=== PATIENT | female | born 1950 ===

== ENCOUNTER 2016-10-04 12:30 | Observation (INO) | payer OTHER, SELFPAY ==
[2016-10-04 12:33] VITALS: BMI 34.3
[2016-10-04 13:47] LABS: BASO # 0.1 K/uL (0.0-0.2); BASO % 1.8 % (0.0-2.0); EOS # 0.2 K/uL (0.0-0.7); EOS % 3.3 % (0.0-4.0); HEMATOCRIT 24.7 % (34.0-47.0); LYMPH # 1.5 K/uL (1.0-4.3); LYMPH % 23.6 % (20.0-40.0); MEAN CELL VOLUME 66.8 fl (81.0-99.0); MEAN CORPUSCULAR HEMOGLOBIN 20.4 pg (27.0-31.0); MEAN CORPUSCULAR HGB CONC 30.6 g/dL (33.0-37.0); MEAN PLATELET VOLUME 7.2 fl (7.2-11.7); MONO # 0.5 K/uL (0.0-0.8); MONO % 7.5 % (0.0-10.0); NEUT # 4.2 K/uL (1.8-7.0); NEUT % 63.8 % (50.0-75.0); RED CELL DISTRIBUTION WIDTH 23.2 % (11.5-14.5); WHITE BLOOD COUNT 6.5 K/uL (4.8-10.8)
[2016-10-04 13:55] LABS: ALKALINE PHOSPHATASE 145 U/L (38-126); ALT/SGPT 18 U/L (9-52); AST/SGOT 29 U/L (14-36); BILIRUBIN,TOTAL 0.3 mg/dl (0.2-1.3); BLOOD UREA NITROGEN 16 mg/dl (7-17); CALCIUM 9.3 mg/dL (8.4-10.2); CARBON DIOXIDE 24 mmol/L (22-30); CHLORIDE 103 mmol/L (98-107); GFR AFRICAN-AMERICAN > 60; GLUCOSE,RANDOM 108 mg/dL (65-105); POTASSIUM 3.7 MMOL/L (3.6-5.0); SODIUM 142 mmol/l (132-148)
[2016-10-04 14:16] LABS: PARTIAL THROMBOPLASTIN TIME 24.3 SECONDS (23.3-32.5)
--- NOTE | 2016-10-04 14:36 | ED PDOC ---
HPI: General Adult Time Seen by Provider: 10/04/16 13:02 Chief Complaint (Nursing): Abnormal Labs Chief Complaint (Provider): Abnormal Labs History Per: Patient History/Exam Limitations: no limitations Onset/Duration Of Symptoms: Days (x1 day) Current Symptoms Are (Timing): Still Present Additional Complaint(s): 66 y/o female with a past medical history of anemia and hypertension who presents to the emergency department after she was called by her PMD and was advised that she needed to visit the ER and get blood transfused because of abnormal lab results (Blood work that was done on 10/03/2016) prior to arrival. Patient states she has a complaint of palpitations and fatigue especially while attempting to walk. Denies dark stools or rectal bleeding. Of note, patient seen Dr. Bradley for work up for anemia and due to have an endoscopy and colonoscopy soon. Guaiac was negative last year. Patient has additional medical record chart in which labs were drawn, [id number]. Past Medical History Reviewed: Historical Data, Nursing Documentation, Vital Signs Vital Signs: Last Vital Signs Temp 98.3 F 10/05/16 08:15 Pulse 82 10/05/16 08:15 Resp 20 10/05/16 08:15 BP 145/83 10/05/16 08:15 Pulse Ox 100 10/05/16 16:48 - Medical History PMH: HTN, Hypothyroidism - Surgical History Surgical History: Cholecystectomy Other surgeries: Uterus removed - Family History Family History: States: Unknown Family Hx - Social History Current smoker - smoking cessation education provided: No Alcohol: None Drugs: Denies - Immunization History Hx Tetanus Toxoid Vaccination: No Hx Influenza Vaccination: No Hx Pneumococcal Vaccination: No - Home Medications Home Medications: Ambulatory Orders Medication Instructions Recorded Ferrous Sulfate [Feosol] 325 mg PO BID 10/04/16 Fluticasone Nasal [Flonase] 2 spray MUKUND DAILY PRN 10/04/16 Levothyroxine [Synthroid] 75 mcg PO DAILY 10/04/16 Losartan/Hydrochlorothiazide 1 tab PO DAILY 10/04/16 [Hyzaar 100-12.5 Tablet] Lovastatin 40 mg PO HS 10/04/16 Metoprolol Succinate 25 mg PO DAILY 10/04/16 metFORMIN [glucOPHAGE] 500 mg PO BID 10/04/16 - Allergies Allergies/Adverse Reactions: Allergies Allergy/AdvReac Type Severity Reaction Status Date / Time No Known Allergies Allergy Verified 10/15/15 10:02 Review of Systems ROS Statement: Except As Marked, All Systems Reviewed And Found Negative Constitutional: Positive for: Other (fatigue) Cardiovascular: Positive for: Palpitations Gastrointestinal: Negative for: Melena, Other (Rectal bleeding) Physical Exam - Reviewed Nursing Documentation Reviewed: Yes Vital Signs Reviewed: Yes - Physical Exam Appears: Positive for: Non-toxic, No Acute Distress Head Exam: Positive for: ATRAUMATIC, NORMOCEPHALIC Eye Exam: Positive for: Normal appearance. Negative for: Conjunctival injection ENT: Positive for: Normal ENT Inspection. Negative for: Pharyngeal Erythema Neck: Positive for: Normal, Supple Cardiovascular/Chest: Positive for: Regular Rate, Rhythm. Negative for: Murmur Respiratory: Positive for: Normal Breath Sounds. Negative for: Accessory Muscle Use, Respiratory Distress Neurologic/Psych: Positive for: Alert, Oriented - Laboratory Results Result Diagrams: 10/05/16 05:30 10/05/16 05:30 - ECG O2 Sat by Pulse Oximetry: 100 (RA) Pulse Ox Interpretation: Normal Medical Decision Making Medical Decision Making: Time: 13:02 Initial impression: Abnormal lab results Initial plan: --Type and Screen Stat ----needs blood transfused because her Hgb is a 7.5 count. Time: 14:12 --Admit (Admit to Hospital) --Patient will be hospitalized under observation within Med/Surg under the care of PCP: Dr. Elaine Acevedo Attestation: Documented by Tita Roper, acting as a scribe for Jayy Groves MD. Provider Scribe Attestation: All medical record entries made by the Scribe were at my direction and personally dictated by me. I have reviewed the chart and agree that the record accurately reflects my personal performance of the history, physical exam, medical decision making, and the department course for this patient. I have also personally directed, reviewed, and agree with the discharge instructions and disposition. Disposition - Clinical Impression Clinical Impression: Anemia - Patient ED Disposition Is Patient to be Admitted: Yes Counseled Patient/Family Regarding: Studies Performed, Diagnosis - Disposition Disposition Time: 14:45 Condition: STABLE - Pt Status Changed To: Hospital Disposition Of: Observation - POA Present On Arrival: None
[2016-10-04] MEDS ORDERED: Glucagon Recombinant 1 mg Inj IM PRN (16:30)
[2016-10-04] MEDS ORDERED: Dextrose 50% SYRINGE Inj (50 ml) IV PRN (16:30)
--- NOTE | 2016-10-04 16:36 | CP.PCM.HP ---
History of Present Illness - History of Present Illness History of Present Illness: 66 y/o female with a PMHx remarkable for anemia, hypertension, NIDDM2 presented to the emergency department after she was called by her PMD (Dr. Price) and was advised that she needed to visit the ER and get blood transfused due to abnormal lab results (CBC done on 10/03/2016). She also reports feeling palpitations when walking and [place], as well as blurred vision and lightheadedness. No symptoms at rest. Denies fever/chills, headaches, CP/SOB, N/ V/D/C, hematochezia, melena, hematemeis, coffee ground emesis, urinary symptoms. Additional MR #[id number] with most recent labs PMD: [facility] and Dr. Bradley PMHx: anemia of unknown etiology, HTN, NIDDM2 Meds: ascorbic acid, docusate, escitaprolam, ferrous sulfate, levothyroxine, losartan, HCTZ, metoformin, atorvastatin PsurgHx: hysterectomy, cholecystectomy ALL: NKDA Social: lives at home alone, visited by friends and family weekend, Denies ETOH/ Tobacco/Illicit drug use FHx: noncontributory ED Course: Vitals on presentation Temp: 98.0F BP: 148/77 HR: 90 RR: 18 O2sat: 100% on RA Labs: CBC: 6.5>7.5/24.7<374 CMP: WNL Type and screen Admitted to Med/Surg for Obs/transfusion Present on Admission - Present on Admission Any Indicators Present on Admission: No Review of Systems - Review of Systems All systems: reviewed and no additional remarkable complaints except Past Patient History - Past Medical History & Family History Past Medical History?: Yes - Past Social History Smoking Status: Never Smoked Alcohol: None Drugs: Denies Home Situation {Lives}: Alone - CARDIAC Hx Hypertension: Yes - ENDOCRINE/METABOLIC Hx Hypothyroidism: Yes - PSYCHIATRIC Hx Substance Use: No - SURGICAL HISTORY Hx Cholecystectomy: Yes Meds Allergies/Adverse Reactions: Allergies Allergy/AdvReac Type Severity Reaction Status Date / Time No Known Allergies Allergy Verified 10/15/15 10:02 Physical Exam - Constitutional Appears: Well, Non-toxic, No Acute Distress - Head Exam Head Exam: ATRAUMATIC, NORMOCEPHALIC - Eye Exam Eye Exam: EOMI, PERRL. absent: Conjunctival injection, Scleral icterus - ENT Exam ENT Exam: Mucous Membranes Moist - Neck Exam Neck exam: Positive for: Full Rom. Negative for: Tenderness - Respiratory Exam Respiratory Exam: Clear to Auscultation Bilateral, NORMAL BREATHING PATTERN. absent: Rales, Rhonchi, Wheezes, Respiratory Distress - Cardiovascular Exam Cardiovascular Exam: REGULAR RHYTHM, RRR, +S1, +S2. absent: Tachycardia, Gallop , JVD, Rubs - GI/Abdominal Exam GI & Abdominal Exam: Normal Bowel Sounds, Soft. absent: Distended, Firm, Guarding, Tenderness - Extremities Exam Extremities exam: Positive for: normal inspection. Negative for: calf tenderness, pedal edema, pedal pulses present - Neurological Exam Neurological exam: Alert, CN II-XII Intact, Normal Gait, Oriented x3 - Psychiatric Exam Psychiatric exam: Normal Affect, Normal Mood - Skin Skin Exam: Dry, Intact, Pallor, Warm Results - Vital Signs Recent Vital Signs: Last Vital Signs Temp 98 F 10/04/16 14:34 Pulse 75 10/04/16 14:34 Resp 20 10/04/16 14:34 BP 132/65 10/04/16 14:34 Pulse Ox 100 10/04/16 14:56 - Labs Result Diagrams: 10/04/16 13:20 10/04/16 13:20 Assessment & Plan - Assessment and Plan (Free Text) Assessment: 66 y/o female with a PMHx remarkable for Anemia of unknown etiology, HTN, NIDDM2 , admitted for microcytic anemia of unknown etiology requiring blood transfusion. Plan: 1) Microcytic Anemia of Unknown Etiology -admitted to obs on Med/Surg -2 units PRBCs -follow up H&H -Dr. Bradley notified -pt has endoscopy and colonoscopy scheduled for later this month 2) NIDDM2 (well controlled) c/w home meds Regular Insulin SC AC HS 3) Hypothyroidism (well controlled) c/w home meds 4) Hypertension (well controlled) c/w home meds 5) DVT Prophylaxis -Lovenox 40 SC
[2016-10-04] MEDS: Insulin Regular 100 units/ml SC SCH ×2 (17:23→23:19)
[2016-10-04 21:14] VITALS: RESP 20; TEMP 98.3
[2016-10-05] MEDS: Insulin Regular 100 units/ml SC SCH ×2 (07:23→11:16)
[2016-10-05 07:38] LABS: HEMATOCRIT 30.7 % (34.0-47.0); MEAN CELL VOLUME 71.4 fl (81.0-99.0); MEAN CORPUSCULAR HEMOGLOBIN 22.5 pg (27.0-31.0); MEAN CORPUSCULAR HGB CONC 31.5 g/dL (33.0-37.0); RED CELL DISTRIBUTION WIDTH 26.5 % (11.5-14.5); WHITE BLOOD COUNT 7.5 K/uL (4.8-10.8)
[2016-10-05 08:13] LABS: BLOOD UREA NITROGEN 19 mg/dl (7-17); CALCIUM 8.8 mg/dL (8.4-10.2); CARBON DIOXIDE 25 mmol/L (22-30); CHLORIDE 107 mmol/L (98-107); GFR AFRICAN-AMERICAN > 60; GLUCOSE,RANDOM 94 mg/dL (65-105); POTASSIUM 3.7 MMOL/L (3.6-5.0); SODIUM 144 mmol/l (132-148)
[2016-10-05 08:15] VITALS: BP 145/83; PULSE 82
[2016-10-05] MEDS ORDERED: Levothyroxine 75 MCG TAB PO SCH (09:00)
[2016-10-05] MEDS ORDERED: Metoprolol Succinate 25 mg XL Tab PO SCH (09:00)
[2016-10-05] MEDS ORDERED: HCTZ/Losartan 12.5/50 Tab PO SCH (09:00)
[2016-10-05] MEDS ORDERED: Enoxaparin 40 mg Syringe SC SCH (09:00)
--- NOTE | 2016-10-05 12:55 | CP.PCM.DIS ---
Provider - Provider Date of Admission: 10/04/16 14:12 Attending physician: Elaine Sánchez MD Time Spent in preparation of Discharge (in minutes): 35 Hospital Course - Lab Results Lab Results: Most Recent Lab Values WBC 7.5 K/uL (4.8-10.8) 10/05/16 05:30 RBC 4.30 Mil/uL (3.80-5.20) 10/05/16 05:30 Hgb 9.7 g/dL (12.0-16.0) L D 10/05/16 05:30 Hct 30.7 % (34.0-47.0) L 10/05/16 05:30 MCV 71.4 fl (81.0-99.0) L D 10/05/16 05:30 MCH 22.5 pg (27.0-31.0) L 10/05/16 05:30 MCHC 31.5 g/dL (33.0-37.0) L 10/05/16 05:30 RDW 26.5 % (11.5-14.5) H 10/05/16 05:30 Plt Count 352 K/uL (130-400) 10/05/16 05:30 MPV 7.2 fl (7.2-11.7) 10/04/16 13:20 Neut % (Auto) 63.8 % (50.0-75.0) 10/04/16 13:20 Lymph % (Auto) 23.6 % (20.0-40.0) 10/04/16 13:20 [place] % (Auto) 7.5 % (0.0-10.0) 10/04/16 13:20 Eos % (Auto) 3.3 % (0.0-4.0) 10/04/16 13:20 Baso % (Auto) 1.8 % (0.0-2.0) 10/04/16 13:20 Neut # 4.2 K/uL (1.8-7.0) 10/04/16 13:20 Lymph # 1.5 K/uL (1.0-4.3) 10/04/16 13:20 [place] # 0.5 K/uL (0.0-0.8) 10/04/16 13:20 Eos # 0.2 K/uL (0.0-0.7) 10/04/16 13:20 Baso # 0.1 K/uL (0.0-0.2) 10/04/16 13:20 PT 10.0 SECONDS (9.6-11.2) 10/04/16 13:20 INR 0.96 (0.92-1.08) 10/04/16 13:20 APTT 24.3 SECONDS (23.3-32.5) 10/04/16 13:20 Sodium 144 mmol/l (132-148) 10/05/16 05:30 Potassium 3.7 MMOL/L (3.6-5.0) 10/05/16 05:30 Chloride 107 mmol/L (98-107) 10/05/16 05:30 Carbon Dioxide 25 mmol/L (22-30) 10/05/16 05:30 Anion Gap 16 (10-20) 10/05/16 05:30 BUN 19 mg/dl (7-17) H 10/05/16 05:30 Creatinine 0.7 mg/dL (0.7-1.2) 10/05/16 05:30 Est GFR ( Amer) > 60 10/05/16 05:30 Est GFR (Non-Af Amer) > 60 10/05/16 05:30 POC Glucose (mg/dL) 119 mg/dL (65-110) H 10/05/16 11:15 Random Glucose 94 mg/dL (65-105) 10/05/16 05:30 Calcium 8.8 mg/dL (8.4-10.2) 10/05/16 05:30 Total Bilirubin 0.3 mg/dl (0.2-1.3) 10/04/16 13:20 AST 29 U/L (14-36) 10/04/16 13:20 ALT 18 U/L (9-52) 10/04/16 13:20 Alkaline Phosphatase 145 U/L (38-126) H 10/04/16 13:20 Total Protein 8.0 G/DL (6.3-8.2) 10/04/16 13:20 Albumin 4.0 g/dL (3.5-5.0) 10/04/16 13:20 Globulin 4.0 gm/dL (2.2-3.9) H 10/04/16 13:20 Albumin/Globulin Ratio 1.0 (1.0-2.1) 10/04/16 13:20 Blood Type O NEGATIVE 10/04/16 13:20 Antibody Screen Negative 10/04/16 13:20 Crossmatch See Detail 10/04/16 13:20 BBK History Checked Patient has bt 10/04/16 13:20 - Hospital Course Hospital Course: 66 y/o female with a PMHx remarkable for chronic microcyctic anemia, HTN, NIDDM2 presented to the ED due to abnormal lab results as well as palpitations and [place]. She was notified by her PMD that her hemoglobin was 6.5 and that she should go to the ER for transfusion. On presentation she had a hemoglobin of 7.5 and was hemodynamically stable. She was admitted for severe symptomatic anemia. She was transfused with 2 units PRBCs and tolerated it well. Follow up H &H was 9.7/30.7 respectively. After an uneventful night, she was discharged in stable condition with orders to follow up H&H this week and to go to her GI appointment on 10/14. Discharge Exam - Head Exam Head Exam: ATRAUMATIC, NORMOCEPHALIC - Eye Exam Eye Exam: EOMI Pupil Exam: PERRL - ENT Exam ENT Exam: Mucous Membranes Moist - Respiratory Exam Respiratory Exam: Clear to PA & Lateral, NORMAL BREATHING PATTERN, UNREMARKABLE - Cardiovascular Exam Cardiovascular Exam: REGULAR RHYTHM, RRR, +S1, +S2. absent: JVD - GI/Abdominal Exam GI & Abdominal Exam: Normal Bowel Sounds, Soft, Unremarkable. absent: Tenderness - Extremities Exam Extremities exam: full ROM, normal capillary refill, normal inspection, pedal pulses present - Neurological Exam Neurological exam: Alert, CN II-XII Intact, Normal Gait, Oriented x3 - Psychiatric Exam Psychiatric exam: Normal Affect, Normal Mood - Skin Skin Exam: Dry, Intact, Normal Color, Warm Discharge Plan - Follow Up Plan Condition: STABLE Disposition: HOME/ ROUTINE Instructions: Iron Rich Diet (DC), Anemia (DC) Additional Instructions: follow up H&H this week follow up with PMD later this week report for endoscopy/colonoscopy on 10/14 any worsening of symptoms, such as chest pain, dizziness, headaches, report back to ER.
[2016-10-05 16:48] VITALS: O2SAT 100
[2016-10-06] MEDS ORDERED: Patient's Own Med (Losartan/Hydrochlorothiazide [Hyzaar 100-12.5 Tablet] 1 TAB) PO SCH (09:00)
== END 2016-10-05 13:35 | disposition home or self-care (01) ==
LOC: H.ER 12:30 → MERGE 14:12 → H.ERHOLD 14:12 → H.MEDSURG1 15:44
PROVIDERS: ADMIT Family Medicine Geriatric Medicine; ATTEND Family Medicine Geriatric Medicine
DX: D64.9 Anemia, unspecified (principal); I10 Essential (primary) hypertension; E03.9 Hypothyroidism, unspecified; E11.9 Type 2 diabetes mellitus without complications; Z90.49 Acquired absence of other specified parts of digestive tract

== ENCOUNTER 2017-01-21 10:25 | Day surgery (SDC) | payer SELFPAY ==
[2016-10-07 07:07] VITALS: BMI 34.3
[2017-01-21] MEDS ORDERED: Lactated Ringer's 500 ML IV ONE (12:36)
[2017-01-21 12:39] VITALS: O2SAT 100
[2017-01-21] MEDS ORDERED: Propofol 10 mg/ml Inj (20 ML) ONE (12:50)
[2017-01-21 13:51] VITALS: BP 130/62; PULSE 83; RESP 18; TEMP 96.8
== END 2017-01-21 15:33 | disposition home or self-care (01) ==
LOC: H.ENDO 10:25
PROVIDERS: ATTEND Internal Medicine Gastroenterology
DX: K29.70 Gastritis, unspecified, without bleeding (principal); K29.80 Duodenitis without bleeding; K57.30 Diverticulosis of large intestine without perforation or abscess without bleeding; K64.8 Other hemorrhoids; D64.9 Anemia, unspecified

== ENCOUNTER 2017-12-19 14:23 | Emergency (ER) | payer SELFPAY ==
[2017-12-19 14:23] VITALS: BMI 34.3
[2017-12-19 14:43] VITALS: TEMP 97
[2017-12-19 15:06] VITALS: O2SAT 98
--- NOTE | 2017-12-19 15:06 | ED PDOC ---
HPI: Hypertension/Hypotension Chief Complaint (Nursing): High Blood Pressure Chief Complaint (Provider): High blood pressure History Per: Patient History/Exam Limitations: no limitations Onset/Duration Of Symptoms: Hrs Current Symptoms Are (Timing): Gone Now Additional Complaint(s): 67 y/o F with h/o HTN presents to ED complaining of elevated BP at home. Patient states that this morning she checked her BP at home and was 150s/111, and decided to come to ED for evaluation. Patient was seen by PMD, Dr. Polk at [facility] on Friday and her BP medications were adjusted. Denies chest pain, SOB, epigastric/abd pain, N/V, headaches, acute changes in vision, or other associated complains. Patient had lab work and Cervical sp MRI done today ordered by her PMD. Past Medical History Vital Signs: Last Vital Signs Temp 97 F L 12/19/17 14:38 Pulse Resp BP Pulse Ox - Medical History PMH: Anemia, HTN, Hypercholesterolemia, Hypothyroidism, Sleep Apnea Denies: Chronic Kidney Disease - Surgical History Surgical History: Cholecystectomy - Family History Family History: States: Unknown Family Hx - Social History Current smoker - smoking cessation education provided: No Ex-Smoker (has not smoked in the last 12 months): No Alcohol: None Drugs: Denies - Immunization History Hx Tetanus Toxoid Vaccination: No Hx Influenza Vaccination: No Hx Pneumococcal Vaccination: No - Home Medications Home Medications: Ambulatory Orders Medication Instructions Recorded Escitalopram [Lexapro] 10 mg PO DAILY #30 tab 09/01/16 metFORMIN [glucOPHAGE] 500 mg PO DAILY #30 tab 09/01/16 Ferrous Sulfate [Feosol] 325 mg PO BID 10/04/16 Fluticasone Nasal [Flonase] 2 spray MUKUND DAILY PRN 10/04/16 Levothyroxine [Synthroid] 75 mcg PO DAILY 10/04/16 Losartan/Hydrochlorothiazide 1 tab PO DAILY 10/04/16 [Hyzaar 100-12.5 Tablet] Lovastatin 40 mg PO HS 10/04/16 Metoprolol Succinate 25 mg PO DAILY 10/04/16 - Allergies Allergies/Adverse Reactions: Allergies Allergy/AdvReac Type Severity Reaction Status Date / Time No Known Allergies Allergy Verified 01/21/17 12:34 Review of Systems ROS Statement: Except As Marked, All Systems Reviewed And Found Negative Review Of Systems: ROS cannot be obtained secondary to pt's inabilty to answer questions. (as per HPI) Physical Exam - Reviewed Nursing Documentation Reviewed: Yes Vital Signs Reviewed: Yes - Physical Exam Appears: Positive for: Non-toxic, No Acute Distress Head Exam: Positive for: ATRAUMATIC, NORMOCEPHALIC Skin: Positive for: Normal Color, Warm. Negative for: Diaphoresis, Pallor, Rash , Jaundice, Mottled, Cyanosis Eye Exam: Positive for: Normal appearance ENT: Positive for: Normal ENT Inspection Neck: Positive for: Normal, Supple Cardiovascular/Chest: Positive for: Regular Rate, Rhythm. Negative for: Chest Non Tender, Gallop, Murmur, Bradycardia, Tachycardia Respiratory: Positive for: Normal Breath Sounds. Negative for: Decreased Breath Sounds, Accessory Muscle Use, Crackles, Rales, Rhonchi, Wheezing, Respiratory Distress Gastrointestinal/Abdominal: Positive for: Bowel Sounds (present and normal), Soft. Negative for: Tenderness, Distended, Guarding, Rebound Back: Positive for: Normal Inspection. Negative for: L CVA Tenderness, R CVA Tenderness Neurologic/Psych: Positive for: Alert, surg physician asst II-XII (grossly normal), Oriented, Gait (normal). Negative for: Motor/Sensory Deficits, Aphasia, Facial Droop Medical Decision Making Medical Decision Making: Hypertension -145/80 in ER -asymptomatic in ER -case discussed with Dr. Benites Patient stable to be discharged home with recommended f/u with PMD. Recommended to take BP meds in AM. F/u with PMD in 2-3 weeks. Bring Home BP machine to PMD' s office to check functioning. Patient is asymptomatic in ER, re-checked BP with manual BP cuff still in high 140s/high 80s. Asymptomatic. Case discussed with Dr. Benites. Disposition - Clinical Impression Clinical Impression: HTN (hypertension) - Patient ED Disposition Is Patient to be Admitted: No Discussed With DrCali: Yadira Benites - Disposition Referrals: [facility] [Outside] Disposition: Routine/Home Disposition Time: 15:43 Condition: GOOD Additional Instructions: Mikaela a hooper medico primario en 2-3 robles. Regresar a emergencias si presion arterial esta elevada, y/o asociada a dolor en el pecho, falta de aire o otro sintoma que le preocupe. Instructions: High Blood Pressure in Adults Forms: [facility] (Polish) Print Language: JAPANESE
[2017-12-19 16:00] VITALS: BP 142/81; PULSE 81; RESP 21
== END 2017-12-19 16:00 | disposition home or self-care (01) ==
LOC: H.ER 14:23
DX: I10 Essential (primary) hypertension (principal); E03.9 Hypothyroidism, unspecified; E78.00 Pure hypercholesterolemia, unspecified; Z79.84 Long term (current) use of oral hypoglycemic drugs

== ENCOUNTER 2018-04-07 11:37 | Observation (INO) | payer MEDICAID, SELFPAY ==
[2018-04-07 11:38] VITALS: BMI 34.3
--- NOTE | 2018-04-07 13:06 | ED PDOC ---
HPI: General Adult Time Seen by Provider: 04/07/18 11:40 Chief Complaint (Nursing): Abnormal Labs Chief Complaint (Provider): Abnormal Labs History Per: Patient, Service Counselor ([id number] voyce- croatian) History/Exam Limitations: no limitations Additional Complaint(s): 67 years old female with history of hypertension presents to ER for abnormal labs that were done by Dr. Polk from [facility] 1days ago. Dr. Polk inf ormed patient of having low hemoglobin. Patient complains at this time of weakness, dizziness and palpitations and it has been going on for 7 days. She denies fever, vomiting and diarrhea. PMD: Dr. Polk, [facility] Past Medical History Reviewed: Historical Data, Nursing Documentation, Vital Signs Vital Signs: Last Vital Signs Temp 98.0 F 04/07/18 11:43 Pulse 108 H 04/07/18 11:43 Resp 19 04/07/18 11:43 BP 164/73 H 04/07/18 11:43 Pulse Ox 100 04/07/18 11:43 - Medical History PMH: Anemia, HTN, Hypercholesterolemia, Hypothyroidism, Sleep Apnea Denies: Chronic Kidney Disease - Surgical History Surgical History: Cholecystectomy - Family History Family History: States: Unknown Family Hx - Social History Current smoker - smoking cessation education provided: No (Former) Alcohol: None Drugs: Denies - Immunization History Hx Tetanus Toxoid Vaccination: No Hx Influenza Vaccination: No Hx Pneumococcal Vaccination: No - Home Medications Home Medications: Ambulatory Orders Medication Instructions Recorded RX: Levothyroxine [Synthroid] 75 mcg PO DAILY 10/04/16 Chromium Picolinate 1 tab PO DAILY 04/07/18 Ferrous Sulfate 325 mg PO DAILY 04/07/18 Losartan/Hydrochlorothiazide 1 tab PO DAILY 04/07/18 [Hyzaar 100-25 Tablet] Lovastatin 40 mg PO HS 04/07/18 Julian-3 Fatty Acids [Julian-3] 2 cap PO HS 04/07/18 - Allergies Allergies/Adverse Reactions: Allergies Allergy/AdvReac Type Severity Reaction Status Date / Time No Known Allergies Allergy Verified 04/07/18 12:00 Review of Systems ROS Statement: Except As Marked, All Systems Reviewed And Found Negative Constitutional: Negative for: Fever Cardiovascular: Positive for: Palpitations Gastrointestinal: Negative for: Vomiting, Diarrhea Neurological: Positive for: Weakness, Dizziness Physical Exam - Reviewed Nursing Documentation Reviewed: Yes Vital Signs Reviewed: Yes - Physical Exam Appears: Positive for: Non-toxic, No Acute Distress Head Exam: Positive for: ATRAUMATIC, NORMOCEPHALIC Skin: Positive for: Normal Color, Warm, Dry Eye Exam: Positive for: Normal appearance ENT: Positive for: Normal ENT Inspection Neck: Positive for: Normal Cardiovascular/Chest: Positive for: Regular Rate, Rhythm. Negative for: Murmur Respiratory: Positive for: Normal Breath Sounds. Negative for: Wheezing Gastrointestinal/Abdominal: Positive for: Normal Exam, Soft. Negative for: Tenderness Extremity: Positive for: Normal ROM, Swelling (trace bilateral LE ). Negative for: Pedal Edema Neurologic/Psych: Positive for: Alert, Oriented (x3) - Laboratory Results Result Diagrams: 04/08/18 08:17 04/08/18 05:45 - ECG ECG Rhythm: Positive for: Sinus Rhythm (Normal) Rate: 99 O2 Sat by Pulse Oximetry: 100 (RA) Pulse Ox Interpretation: Normal Medical Decision Making Medical Decision Making: Time: 1217 Initial Plan: SYMPTOMATIC ANEMIA --Type and screen --CMP --CBC obtained consent from patient with provider network manager-see number from inital encounter pt will get transfused 1 prbc pt had GI workup in 2017 which was negative discussed with Dr De Los Santos hospitalist who will admit pt family practice resident aware as well Scribe Attestation: Documented by Milagros Garcia, acting as a scribe for Jonathan Slaughter MD. Provider Scribe Attestation: All medical record entries made by the Scribe were at my direction and personally dictated by me. I have reviewed the chart and agree that the record accurately reflects my personal performance of the history, physical exam, medical decision making, and the department course for this patient. I have also personally directed, reviewed, and agree with the discharge instructions and disposition. Disposition - Clinical Impression Clinical Impression: Symptomatic anemia - Patient ED Disposition Is Patient to be Admitted: Yes Counseled Patient/Family Regarding: Studies Performed, Diagnosis - Disposition Disposition Time: 13:30 Condition: STABLE
[2018-04-07 13:29] LABS: BASO # 0.1 K/uL (0.0-0.2); BASO % 1.1 % (0.0-2.0); EOS # 0.3 K/uL (0.0-0.7); EOS % 3.7 % (0.0-4.0); HEMOGLOBIN 7.5 g/dL (12.0-16.0); LYMPH # 1.6 K/uL (1.0-4.3); LYMPH % 19.5 % (20.0-40.0); MEAN CELL VOLUME 66.3 fl (81.0-99.0); MEAN CORPUSCULAR HEMOGLOBIN 20.7 pg (27.0-31.0); MEAN CORPUSCULAR HGB CONC 31.1 g/dL (33.0-37.0); MEAN PLATELET VOLUME 7.1 fl (7.2-11.7); MONO # 0.6 K/uL (0.0-0.8); MONO % 6.9 % (0.0-10.0); NEUT # 5.6 K/uL (1.8-7.0); NEUT % 68.8 % (50.0-75.0); NRBC % 0.1 % (0.0-0.0); RBC 3.61 Mil/uL (3.80-5.20); RED CELL DISTRIBUTION WIDTH 17.4 % (11.5-14.5); WHITE BLOOD COUNT 8.1 K/uL (4.8-10.8)
[2018-04-07 13:55] LABS: ALBUMIN 3.9 g/dL (3.5-5.0); ALT/SGPT 15 U/L (9-52); AST/SGOT 27 U/L (14-36); BLOOD UREA NITROGEN 21 mg/dl (7-17); CALCIUM 9.2 mg/dL (8.4-10.2); GFR NON-AFRICAN AMERICAN > 60
--- NOTE | 2018-04-07 16:09 | CP.PCM.HP ---
Addendum entered and electronically signed by Anitha Daniel MD 04/08/18 06:55: [facility] used [id number] Original Note: <Anitha Daniel - Last Filed: 04/07/18 16:30> History of Present Illness - History of Present Illness History of Present Illness: CC: palpitations and dizziness HPI: 67 YO female with PMHx of HTN, HLD and microcytic anemia presents to [facility] ED for dizziness, fatigue and palpitations. Pt states that her symptoms started about 15 days ago but has worsened over the past few days. Pt was seen by her PMD on 03/25/18, and blood work was ordered at that time for symptoms of fatigue. Pt felt worse this AM, called MD and was told to come to the ER. Pt denies vaginal bleeding, blood in stool, or dark tarry stool, nosebleeds, emesis. Of note, this is pts 4th admission for anemia, requiring blood transfusion. EGD and colonoscopy was done in 2016 no GI finding, no source of bleeding identified. Pt takes FeSol at home, but not compliant because it makes her constipated. PMD: [facility] PMHx: HTN, HLD, microcytic anemia, Hx of DM (years ago took Metformin but no meds now) SurgHx: cholecystectomy SHx: hx of smoking for 25 yrs (2 cigarettes a day, quit 20 yrs ago), denies ETOH and illicit drug use FHx: mother HTN, no hx of Cancers in family Allergies: NKDA Meds: Lovastatin 40, Fesol 325mg, Synthroid 75mg, Losartan-hctz 100-25mg ED course: Vitals: BP 116/57 HR 91 RR 19 O2 99 RA T98 Labs: 8.1<7.5/24.0<523 142/3.5, 106/28, 21/0.7, 142 Alk phos 134 Present on Admission - Present on Admission Any Indicators Present on Admission: No Review of Systems - Constitutional Constitutional: Malaise - EENT Nose/Mouth/Throat: Dry Mouth. absent: Epistaxis - Cardiovascular Cardiovascular: Palpitations. absent: Chest Pain, Dyspnea - Respiratory Respiratory: absent: Cough, Dyspnea - Gastrointestinal Gastrointestinal: absent: Abdominal Pain, Change in Stool Character, Coffee Ground Emesis, Hematemesis, Hematochezia, Melena - Genitourinary Genitourinary: absent: Dysuria, Hematuria - Reproductive: Female Reproductive:Female: Post Menopausal. absent: Abnormal Vaginal Bleeding - Neurological Neurological: Dizziness. absent: Confusion, Syncope Past Patient History - Past Medical History & Family History Past Medical History?: Yes - Past Social History Smoking Status: Former Smoker Alcohol: None Drugs: Denies - CARDIAC Hx Hypercholesterolemia: Yes Hx Hypertension: Yes - PULMONARY Hx Sleep Apnea: Yes - NEUROLOGICAL Hx Neurological Disorder: No - HEENT Hx HEENT Problems: No - RENAL Hx Chronic Kidney Disease: No - ENDOCRINE/METABOLIC Hx Hypothyroidism: Yes - HEMATOLOGICAL/ONCOLOGICAL Hx Anemia: Yes - INTEGUMENTARY Hx Dermatological Problems: No - MUSCULOSKELETAL/RHEUMATOLOGICAL Hx Musculoskeletal Disorders: No Hx Falls: No - GASTROINTESTINAL Hx Gastrointestinal Disorders: No - GENITOURINARY/GYNECOLOGICAL Hx Genitourinary Disorders: No - PSYCHIATRIC Hx Psychophysiologic Disorder: No Hx Substance Use: No - SURGICAL HISTORY Hx Cholecystectomy: Yes - ANESTHESIA Hx Anesthesia: Yes Hx Anesthesia Reactions: No Hx Malignant Hyperthermia: No Meds Allergies/Adverse Reactions: Allergies Allergy/AdvReac Type Severity Reaction Status Date / Time No Known Allergies Allergy Verified 04/07/18 12:00 Physical Exam - Constitutional Appears: No Acute Distress Additional comments: Pale - Head Exam Head Exam: NORMAL INSPECTION - Eye Exam Eye Exam: EOMI - ENT Exam ENT Exam: Mucous Membranes Dry - Respiratory Exam Respiratory Exam: Clear to Auscultation Bilateral, NORMAL BREATHING PATTERN. absent: Wheezes - Cardiovascular Exam Cardiovascular Exam: Tachycardia, REGULAR RHYTHM, +S1, +S2 - GI/Abdominal Exam GI & Abdominal Exam: Normal Bowel Sounds, Soft. absent: Distended, Guarding, Tenderness - Extremities Exam Extremities exam: Positive for: normal inspection. Negative for: pedal edema Additional comments: varicose veins noted in the leg/foot b/l - Back Exam Back exam: NORMAL INSPECTION - Neurological Exam Neurological exam: Alert, Oriented x3 - Psychiatric Exam Psychiatric exam: Normal Affect, Normal Mood - Skin Skin Exam: Pallor, Warm Results - Vital Signs Recent Vital Signs: Last Vital Signs Temp 98.0 F 04/07/18 11:43 Pulse 65 04/07/18 16:06 Resp 21 04/07/18 14:45 BP 116/57 L 04/07/18 14:45 Pulse Ox 100 04/07/18 16:06 - Labs Result Diagrams: 04/07/18 13:20 04/07/18 13:20 Labs: Laboratory Results - last 24 hr 04/07/18 04/07/18 04/07/18 13:20 13:20 13:20 WBC 8.1 RBC 3.61 L Hgb 7.5 L Hct 24.0 L MCV 66.3 L MCH 20.7 L MCHC 31.1 L RDW 17.4 H Plt Count 523 H MPV 7.1 L Neut % (Auto) 68.8 Lymph % (Auto) 19.5 L [place] % (Auto) 6.9 Eos % (Auto) 3.7 Baso % (Auto) 1.1 Neut # (Auto) 5.6 Lymph # (Auto) 1.6 [place] # (Auto) 0.6 Eos # (Auto) 0.3 Baso # (Auto) 0.1 Sodium 142 Potassium 3.5 L Chloride 106 Carbon Dioxide 28 Anion Gap 12 BUN 21 H Creatinine 0.7 Est GFR ( Amer) > 60 Est GFR (Non-Af Amer) > 60 Random Glucose 142 H Calcium 9.2 Total Bilirubin 0.1 L AST 27 ALT 15 Alkaline Phosphatase 134 H D Total Protein 8.0 Albumin 3.9 Globulin 4.1 H Albumin/Globulin Ratio 1.0 Blood Type O NEGATIVE Antibody Screen Negative Crossmatch See Detail BBK History Checked Patient has bt Assessment & Plan (1) Symptomatic anemia Status: Acute (2) HTN (hypertension) Status: Chronic (3) Hypothyroidism Status: Chronic - Assessment and Plan (Free Text) Assessment: Assessment/Plan: 67 YO female with PMHx of HTN, HLD and microcytic anemia is admitted for sympt omatic anemia. Symptomatic, Microcytic anemia -hb/hct 7.5/24, MCV 66.3 -likely Iron deficiency anemia (Iron 28 05/09, Ferritin 12.9 07/10) -no acute source of bleeding -follow up FOBT, iron studies -2 units of PRBC ordered -follow up post transfusion h/h -cont FeSol -hem/onc consulted, follow up recs Hypertension -chronic, controlled -cont home meds, Losartan-hctz 100-25mg HLD -chronic -cont home meds, Lovastatin 40 -follow up lipids Hypothyroidism -chronic, controlled -TSH 3.47 (04/09) -cont home meds, Synthroid 75mg Electrolytes -replace prn -20 meq KCl PO Hx of NIDDM -last HbA1c 5.7, pre-diabetes -not on any po meds at this time -follow up HbA1c DVT prophylaxis -Lovenox 40 SC <Choco Hollis - Last Filed: 04/07/18 17:48> Results - Vital Signs Recent Vital Signs: Last Vital Signs Temp 98.0 F 04/07/18 11:43 Pulse 99 H 04/07/18 16:14 Resp 21 04/07/18 14:45 BP 116/57 L 04/07/18 14:45 Pulse Ox 100 04/07/18 16:14 - Labs Result Diagrams: 04/07/18 13:20 04/07/18 13:20 Labs: Laboratory Results - last 24 hr 04/07/18 04/07/18 04/07/18 13:20 13:20 13:20 WBC 8.1 RBC 3.61 L Hgb 7.5 L Hct 24.0 L MCV 66.3 L MCH 20.7 L MCHC 31.1 L RDW 17.4 H Plt Count 523 H MPV 7.1 L Neut % (Auto) 68.8 Lymph % (Auto) 19.5 L [place] % (Auto) 6.9 Eos % (Auto) 3.7 Baso % (Auto) 1.1 Neut # (Auto) 5.6 Lymph # (Auto) 1.6 [place] # (Auto) 0.6 Eos # (Auto) 0.3 Baso # (Auto) 0.1 Sodium 142 Potassium 3.5 L Chloride 106 Carbon Dioxide 28 Anion Gap 12 BUN 21 H Creatinine 0.7 Est GFR ( Amer) > 60 Est GFR (Non-Af Amer) > 60 Random Glucose 142 H Calcium 9.2 Iron TIBC Ferritin Total Bilirubin 0.1 L AST 27 ALT 15 Alkaline Phosphatase 134 H D Total Protein 8.0 Albumin 3.9 Globulin 4.1 H Albumin/Globulin Ratio 1.0 Blood Type O NEGATIVE Antibody Screen Negative Crossmatch See Detail BBK History Checked Patient has bt 04/07/18 04/07/18 16:45 16:45 WBC RBC Hgb Hct MCV MCH MCHC RDW Plt Count MPV Neut % (Auto) Lymph % (Auto) [place] % (Auto) Eos % (Auto) Baso % (Auto) Neut # (Auto) Lymph # (Auto) [place] # (Auto) Eos # (Auto) Baso # (Auto) Sodium Potassium Chloride Carbon Dioxide Anion Gap BUN Creatinine Est GFR ( Amer) Est GFR (Non-Af Amer) Random Glucose Calcium Iron < 10 L TIBC 435 Ferritin 6.8 L Total Bilirubin AST ALT Alkaline Phosphatase Total Protein Albumin Globulin Albumin/Globulin Ratio Blood Type Antibody Screen Crossmatch BBK History Checked Attending/Attestation - Attestation I have personally seen and examined this patient.: Yes I have fully participated in the care of the patient.: Yes I have reviewed all pertinent clinical information: Yes Notes (Text): Patient seen and examined with the residents, agree with above Symptomatic anemia requiring multiple transfusions in the past Denies any bleeding (GI or vaginal); GI workup in the past has been negative Noted to have low iron in the past, nutritional with component of non-compliance as she gets constipated from oral iron f/u on iron panel; transfuse 2 units of pRBC's and f/u on post-transfusion cbc Hematology workup. Will send stool for occult blood Monitor hemodynamics.
[2018-04-07] MEDS ORDERED: Potassium Chloride 20 mEq ER Tab PO ONE ×2 (16:16→16:52)
[2018-04-07 17:27] LABS: IRON < 10 ug/dL (37-170); TOTAL IRON BINDING CAPACITY 435 ug/dL (250-450)
[2018-04-07 17:33] LABS: FERRITIN 6.8 ng/Ml (11.1-264.0)
[2018-04-07 17:47] LABS: % IRON SATURATION 2.29 % (20-55)
[2018-04-08 06:37] LABS: ALBUMIN 3.7 g/dL (3.5-5.0); ALT/SGPT 18 U/L (9-52); AST/SGOT 26 U/L (14-36); BLOOD UREA NITROGEN 18 mg/dl (7-17); CALCIUM 9.2 mg/dL (8.4-10.2); GFR NON-AFRICAN AMERICAN > 60; HDL CHOLESTEROL 51 MG/DL (30-70)
[2018-04-08] MEDS: Levothyroxine 75 MCG TAB PO SCH (06:46)
[2018-04-08 06:47] LABS: LDL CHOLESTEROL 96 mg/dL (0-129)
[2018-04-08 08:32] LABS: BASO # 0.1 K/uL (0.0-0.2); BASO % 0.9 % (0.0-2.0); EOS # 0.2 K/uL (0.0-0.7); EOS % 1.7 % (0.0-4.0); LYMPH # 0.9 K/uL (1.0-4.3); LYMPH % 7.6 % (20.0-40.0); MEAN CELL VOLUME 69.9 fl (81.0-99.0); MEAN CORPUSCULAR HEMOGLOBIN 22.8 pg (27.0-31.0); MEAN CORPUSCULAR HGB CONC 32.6 g/dL (33.0-37.0); MEAN PLATELET VOLUME 6.8 fl (7.2-11.7); MONO # 0.6 K/uL (0.0-0.8); MONO % 5.2 % (0.0-10.0); NEUT # 10.4 K/uL (1.8-7.0); NEUT % 84.6 % (50.0-75.0); NRBC % 0.1 % (0.0-0.0); PLATELET COUNT 443 K/uL (130-400); RBC 4.11 Mil/uL (3.80-5.20); RED CELL DISTRIBUTION WIDTH 23.2 % (11.5-14.5); WHITE BLOOD COUNT 12.3 K/uL (4.8-10.8)
[2018-04-08 08:33] LABS: HEMOGLOBIN 9.4 g/dL (12.0-16.0)
[2018-04-08] MEDS ORDERED: Patient's Own Med (Losartan/Hydrochlorothiazide [Hyzaar 100-25 Tablet] 1 TAB) PO SCH (09:00)
[2018-04-08] MEDS ORDERED: Enoxaparin 40 mg Syringe SC SCH (09:00)
[2018-04-08] MEDS: Pantoprazole 40 mg EC Tab PO SCH (09:21)
[2018-04-08 09:26] LABS: BANDS 1 % (0-2); BASOPHIL 1 % (0-2); LYMPHOCYTE 10 % (20-50); MONOCYTE 5 % (0-10); NEUTROPHIL 83 % (42-75); TOTAL CELLS COUNTED 100
[2018-04-08 09:28] LABS: PLATELET ESTIMATE NORMAL (NORMAL); SPHEROCYTES SLIGHT; TOXIC GRANULATION PRESENT
[2018-04-08] MEDS ORDERED: Iohexol 240 (50 ml) PO ONE (10:07)
--- NOTE | 2018-04-08 10:49 | CP.PCM.PN ---
<Anitha Daniel - Last Filed: 04/08/18 11:05> Subjective - Date & Time of Evaluation Date of Evaluation: 04/08/18 Time of Evaluation: 07:30 - Subjective Subjective: S/p 2 units of PRBC. Pt seen and examined by bedside this AM. States that her dizziness has resoled, continues to feel tired but improving. Spoke to Daughter Lynda on the phone about patient and her diagnosis with patients permission. [facility] used [id number] Objective - Vital Signs/Intake and Output Vital Signs (last 24 hours): Temp Pulse Resp BP Pulse Ox 98.9 F 95 H 19 128/73 97 04/08/18 08:17 04/08/18 09:20 04/08/18 08:17 04/08/18 09:20 04/08/18 08:17 Intake and Output: 04/08/18 04/08/18 06:59 18:59 Intake Total 722 Balance 722 - Medications Medications: Current Medications Atorvastatin Calcium (Lipitor) 10 mg PO HS [facility] Last Admin: 04/07/18 21:17 Dose: 10 mg Docusate Sodium (Colace) 100 mg PO DAILY [facility] Last Admin: 04/08/18 09:19 Dose: 100 mg Ferrous Sulfate (Feosol) 325 mg PO DAILY [facility] Last Admin: 04/08/18 09:20 Dose: 325 mg Hydrochlorothiazide (Hydrodiuril) 25 mg PO DAILY [facility] Last Admin: 04/08/18 09:20 Dose: 25 mg Levothyroxine Sodium (Synthroid) 75 mcg PO DAILY@0630 [facility] Last Admin: 04/08/18 06:46 Dose: 75 mcg Losartan Potassium (Cozaar) 100 mg PO DAILY [facility] Last Admin: 04/08/18 09:20 Dose: 100 mg Pantoprazole Sodium (Protonix Ec Tab) 40 mg PO DAILY [facility] Last Admin: 04/08/18 09:21 Dose: 40 mg - Labs Labs: 04/08/18 08:17 04/08/18 05:45 - Constitutional Appears: No Acute Distress - Head Exam Head Exam: NORMAL INSPECTION - ENT Exam ENT Exam: Mucous Membranes Moist - Respiratory Exam Respiratory Exam: Clear to Ausculation Bilateral, NORMAL BREATHING PATTERN. absent: Wheezes - Cardiovascular Exam Cardiovascular Exam: REGULAR RHYTHM, +S1, +S2 - GI/Abdominal Exam GI & Abdominal Exam: Soft, Normal Bowel Sounds. absent: Tenderness - Extremities Exam Extremities Exam: Normal Inspection. absent: Pedal Edema - Back Exam Back Exam: NORMAL INSPECTION - Neurological Exam Neurological Exam: Alert, Awake - Skin Skin Exam: Normal Color Additional comments: pallor resolved Assessment and Plan (1) Symptomatic anemia Status: Acute (2) HTN (hypertension) Status: Chronic (3) Hypothyroidism Status: Chronic - Assessment and Plan (Free Text) Assessment: Assessment/Plan: 67 YO female with PMHx of HTN, HLD and microcytic anemia is admitted for symptomatic anemia. Symptomatic, Microcytic anemia -Iron deficiency anemia (Iron <10 Ferritin 6.8) -s/p 2 units of PRBC -no acute source of bleeding -follow up FOBT, UA -post transfusion h/h stable -1x 200 IV venofer ordered -hem/onc consulted, recs appreciated. Follow up retic, transferritin, CT abd and pelvis. IV venofer 200 04/09 Hypertension -chronic, controlled -cont home meds, Losartan-hctz 100-25mg HLD -chronic -cont home meds, Lovastatin 40 Hypothyroidism -chronic, controlled -TSH 3.47 (04/09) -cont home meds, Synthroid 75mg Electrolytes -K resolved Hx of NIDDM -last HbA1c 5.7, pre-diabetes -not on any po meds at this time -follow up HbA1c DVT prophylaxis -Lovenox 40 SC <Estephanie Martinez - Last Filed: 04/08/18 15:29> Objective - Vital Signs/Intake and Output Vital Signs (last 24 hours): Temp Pulse Resp BP Pulse Ox 98.9 F 95 H 19 128/73 97 04/08/18 08:17 04/08/18 09:20 04/08/18 08:17 04/08/18 09:20 04/08/18 08:17 Intake and Output: 04/08/18 04/08/18 06:59 18:59 Intake Total 722 Balance 722 - Medications Medications: Current Medications Atorvastatin Calcium (Lipitor) 10 mg PO [facility] Last Admin: 04/07/18 21:17 Dose: 10 mg Docusate Sodium (Colace) 100 mg PO DAILY [facility] Last Admin: 04/08/18 09:19 Dose: 100 mg Ferrous Sulfate (Feosol) 325 mg PO DAILY [facility] Last Admin: 10/17/18 09:20 Dose: 325 mg Hydrochlorothiazide (Hydrodiuril) 25 mg PO DAILY [facility] Last Admin: 04/08/18 09:20 Dose: 25 mg Levothyroxine Sodium (Synthroid) 75 mcg PO DAILY@0630 [facility] Last Admin: 04/08/18 06:46 Dose: 75 mcg Losartan Potassium (Cozaar) 100 mg PO DAILY [facility] Last Admin: 04/08/18 09:20 Dose: 100 mg Pantoprazole Sodium (Protonix Ec Tab) 40 mg PO DAILY [facility] Last Admin: 04/08/18 09:21 Dose: 40 mg - Labs Labs: 04/08/18 08:17 04/08/18 05:45 Attending/Attestation - Attestation I have personally seen and examined this patient.: Yes I have fully participated in the care of the patient.: Yes I have reviewed all pertinent clinical information, including history, physical exam and plan: Yes Notes (Text): Symptomatic Iron Decifiency Anemia - Transfused 2 units PRBC - Iron levels low, Retic 3.1, no GI nor bleed, Urine : no blood - hx of chronic anemia - previous worked up for this- EGD , Colonoscopy - no bleeding, Occult blood neg, - IV Venofer - Hematology consulted - ? BM Biopsy
--- NOTE | 2018-04-08 11:35 | CP.PCM.CON ---
History of Present Illness - History of Present Illness History of Present Illness: This is a 67 yrs old female who has been iron deficient for the last couple of years..She was being seen by Dr Bradley who did an extensive examination on her including endoscopy and colonoscopy which were normal.In a CT scan done in Apr 2017, there was thickening of the left colon in the sigmoid area. The colonoscopy was normal.Her hgb was 7.5gms, ferritin is 6ngm, and serum iron is low as well. Her retic count is 3.6, There is no c/o bleeding from any site.She has some low back pain, but appetite is good. Her globulin level is a little high. Will order tests to r/o myeloma. Past Patient History - Past Medical History & Family History Past Medical History?: Yes - Past Social History Smoking Status: Never Smoked - CARDIAC Hx Hypercholesterolemia: Yes Hx Hypertension: Yes - PULMONARY Hx Sleep Apnea: Yes - NEUROLOGICAL Hx Neurological Disorder: No - HEENT Hx HEENT Problems: No - RENAL Hx Chronic Kidney Disease: No - ENDOCRINE/METABOLIC Hx Hypothyroidism: Yes - HEMATOLOGICAL/ONCOLOGICAL Hx Anemia: Yes - INTEGUMENTARY Hx Dermatological Problems: No - MUSCULOSKELETAL/RHEUMATOLOGICAL Hx Musculoskeletal Disorders: No Hx Falls: No - GASTROINTESTINAL Hx Gastrointestinal Disorders: No - GENITOURINARY/GYNECOLOGICAL Hx Genitourinary Disorders: No - PSYCHIATRIC Hx Psychophysiologic Disorder: No Hx Substance Use: No - SURGICAL HISTORY Hx Cholecystectomy: Yes - ANESTHESIA Hx Anesthesia: Yes Hx Anesthesia Reactions: No Hx Malignant Hyperthermia: No Meds Allergies/Adverse Reactions: Allergies Allergy/AdvReac Type Severity Reaction Status Date / Time No Known Allergies Allergy Verified 04/07/18 12:00 - Medications Medications: Current Medications Atorvastatin Calcium (Lipitor) 10 mg PO HS [facility] Last Admin: 04/07/18 21:17 Dose: 10 mg Docusate Sodium (Colace) 100 mg PO DAILY [facility] Last Admin: 04/08/18 09:19 Dose: 100 mg Ferrous Sulfate (Feosol) 325 mg PO DAILY [facility] Last Admin: 04/08/18 09:20 Dose: 325 mg Hydrochlorothiazide (Hydrodiuril) 25 mg PO DAILY [facility] Last Admin: 04/08/18 09:20 Dose: 25 mg Levothyroxine Sodium (Synthroid) 75 mcg PO DAILY@0630 [facility] Last Admin: 04/08/18 06:46 Dose: 75 mcg Losartan Potassium (Cozaar) 100 mg PO DAILY [facility] Last Admin: 04/08/18 09:20 Dose: 100 mg Pantoprazole Sodium (Protonix Ec Tab) 40 mg PO DAILY [facility] Last Admin: 04/08/18 09:21 Dose: 40 mg Physical Exam - Additional Findings Additional findings: Physical exam; Alert,well oriented in no acute distress neck; Supple, no adenopathy Chest; Clear, no rales or rhonchi Heart; RSR,no murmur Abd; Soft,no mass, no h/s megaly Results - Vital Signs Recent Vital Signs: Last Vital Signs Temp 98.9 F 04/08/18 08:17 Pulse 95 H 04/08/18 09:20 Resp 19 04/08/18 08:17 BP 128/73 04/08/18 09:20 Pulse Ox 97 04/08/18 08:17 - Labs Result Diagrams: 04/08/18 08:17 04/08/18 05:45 Labs: Laboratory Results - last 24 hr 04/07/18 04/07/18 04/07/18 13:20 13:20 13:20 WBC 8.1 RBC 3.61 L Hgb 7.5 L Hct 24.0 L MCV 66.3 L MCH 20.7 L MCHC 31.1 L RDW 17.4 H Plt Count 523 H MPV 7.1 L Neut % (Auto) 68.8 Lymph % (Auto) 19.5 L [place] % (Auto) 6.9 Eos % (Auto) 3.7 Baso % (Auto) 1.1 Neut # (Auto) 5.6 Lymph # (Auto) 1.6 [place] # (Auto) 0.6 Eos # (Auto) 0.3 Baso # (Auto) 0.1 Neutrophils % (Manual) Band Neutrophils % Lymphocytes % (Manual) Monocytes % (Manual) Basophils % (Manual) Toxic Granulation Platelet Estimate Spherocytes Retic Count Sodium 142 Potassium 3.5 L Chloride 106 Carbon Dioxide 28 Anion Gap 12 BUN 21 H Creatinine 0.7 Est GFR ( Amer) > 60 Est GFR (Non-Af Amer) > 60 Random Glucose 142 H Calcium 9.2 Phosphorus Magnesium Iron TIBC % Saturation Ferritin Total Bilirubin 0.1 L AST 27 ALT 15 Alkaline Phosphatase 134 H D Total Protein 8.0 Albumin 3.9 Globulin 4.1 H Albumin/Globulin Ratio 1.0 Triglycerides Cholesterol LDL Cholesterol Direct HDL Cholesterol Vitamin B12 Blood Type O NEGATIVE Antibody Screen Negative Crossmatch See Detail BBK History Checked Patient has bt 04/07/18 04/07/18 04/08/18 16:45 16:45 05:45 WBC RBC Hgb Hct MCV MCH MCHC RDW Plt Count MPV Neut % (Auto) Lymph % (Auto) [place] % (Auto) Eos % (Auto) Baso % (Auto) Neut # (Auto) Lymph # (Auto) [place] # (Auto) Eos # (Auto) Baso # (Auto) Neutrophils % (Manual) Band Neutrophils % Lymphocytes % (Manual) Monocytes % (Manual) Basophils % (Manual) Toxic Granulation Platelet Estimate Spherocytes Retic Count Sodium 140 Potassium 4.0 Chloride 107 Carbon Dioxide 28 Anion Gap 9 L BUN 18 H Creatinine 0.8 Est GFR ( Amer) > 60 Est GFR (Non-Af Amer) > 60 Random Glucose 104 Calcium 9.2 Phosphorus 4.0 Magnesium 1.9 Iron < 10 L TIBC 435 % Saturation 2.29 L Ferritin 6.8 L Total Bilirubin 0.9 AST 26 ALT 18 Alkaline Phosphatase 109 Total Protein 7.5 Albumin 3.7 Globulin 3.9 Albumin/Globulin Ratio 1.0 Triglycerides 111 Cholesterol 171 LDL Cholesterol Direct 96 HDL Cholesterol 51 Vitamin B12 583 Blood Type Antibody Screen Crossmatch BBK History Checked 04/08/18 04/08/18 08:17 10:39 WBC 12.3 H D RBC 4.11 Hgb 9.4 L Hct 28.7 L MCV 69.9 L D MCH 22.8 L MCHC 32.6 L RDW 23.2 H Plt Count 443 H MPV 6.8 L Neut % (Auto) 84.6 H Lymph % (Auto) 7.6 L [place] % (Auto) 5.2 Eos % (Auto) 1.7 Baso % (Auto) 0.9 Neut # (Auto) 10.4 H Lymph # (Auto) 0.9 L [place] # (Auto) 0.6 Eos # (Auto) 0.2 Baso # (Auto) 0.1 Neutrophils % (Manual) 83 H Band Neutrophils % 1 Lymphocytes % (Manual) 10 L Monocytes % (Manual) 5 Basophils % (Manual) 1 Toxic Granulation Present Platelet Estimate Normal Spherocytes Slight Retic Count 3.1 H Sodium Potassium Chloride Carbon Dioxide Anion Gap BUN Creatinine Est GFR ( Amer) Est GFR (Non-Af Amer) Random Glucose Calcium Phosphorus Magnesium Iron TIBC % Saturation Ferritin Total Bilirubin AST ALT Alkaline Phosphatase Total Protein Albumin Globulin Albumin/Globulin Ratio Triglycerides Cholesterol LDL Cholesterol Direct HDL Cholesterol Vitamin B12 Blood Type Antibody Screen Crossmatch BBK History Checked Assessment & Plan - Assessment and Plan (Free Text) Assessment: Impression; Severe iron deficiency anemia , etiology ? low transferrin ? occult malignancy with bleeding. Plan: Plan; Have ordered serum transferrin and a ct scan to r/o occult malignancy - Date & Time Date: 04/08/18 Time: 11:45
[2018-04-08 14:04] LABS: SQUAMOUS EPITHIAL < 1 /hpf (0-5); URINE BILIRUBIN NEGATIVE (NEGATIVE); URINE BLOOD NEGATIVE (NEGATIVE); URINE CLARITY CLEAR (Clear); URINE COLOR YELLOW (YELLOW); URINE GLUCOSE (UA) NEG (Normal); URINE LEUKOCYTE ESTERASE NEG Leu/uL (Negative); URINE PROTEIN NEGATIVE (NEGATIVE); URINE UROBILINOGEN 0.2-1.0 mg/dL (0.2-1.0)
[2018-04-08] MEDS ORDERED: Iohexol 300 100 ML IJ ONE (14:43)
[2018-04-08] MEDS ORDERED: Sodium Chloride 0.9% 50 ML IV ONE (14:43)
--- NOTE | 2018-04-08 15:53 | CT ---
Date of service: 04/08/2018 PROCEDURE: CT Abdomen and Pelvis with contrast HISTORY: symptomatic anemia COMPARISON: 05/07/2017 TECHNIQUE: CT scan of the abdomen and pelvis was performed after ut administration of intravenous contrast. Oral contrast was not administered. Coronal and sagittal reformatted images were obtained. Contrast dose: 90 mL Visipaque 320 Radiation dose: Total exam DLP = 793.55 mGy-cm. This CT exam was performed using one or more of the following dose reduction techniques: Automated exposure control, adjustment of the mA and/or kV according to patient size, and/or use of iterative reconstruction technique. FINDINGS: LOWER THORAX: There is a small calcified granuloma in the right middle lobe. The lung bases are clear. LIVER: There is moderate hepatomegaly and diffuse fatty liver. No gross lesion or ductal dilatation. GALLBLADDER AND BILE DUCTS: Surgically absent. PANCREAS: Normal in size with homogeneous enhancement. No gross lesion or ductal dilatation. SPLEEN: Normal in size and appearance. ADRENALS: No discrete nodule. KIDNEYS AND URETERS: Normal in size with homogeneous enhancement. No hydronephrosis. No solid mass. VASCULATURE: No aortic aneurysm. BOWEL: The small bowel loops are normal in caliber. There is sigmoid diverticulosis. There is mild circumferential mural thickening in the sigmoid colon. No micro perforation or abscess. APPENDIX: Normal appendix. PERITONEUM: No free fluid. No free air. LYMPH NODES: No enlarged lymph nodes. BLADDER: Well distended and grossly normal in appearance. REPRODUCTIVE: The uterus is surgically absent. BONES: No acute fracture. There is diffuse bone demineralization and multilevel degenerative changes in the spine. OTHER FINDINGS: There is a small sliding hiatal hernia. There is a small fat containing umbilical hernia. IMPRESSION: Sigmoid diverticulosis. Mild circumferential mural thickening of the sigmoid colon without pericolonic inflammatory changes could be related to chronic diverticulosis or underdistention. No definite evidence for acute diverticulitis. Clinical follow-up is advised Moderate hepatomegaly and hepatic steatosis. Small sliding hiatal hernia.
[2018-04-09 06:02] LABS: BASO # 0.1 K/uL (0.0-0.2); BASO % 1.3 % (0.0-2.0); EOS # 0.2 K/uL (0.0-0.7); EOS % 3.9 % (0.0-4.0); HEMOGLOBIN 9.6 g/dL (12.0-16.0); LYMPH # 1.2 K/uL (1.0-4.3); MEAN CELL VOLUME 70.1 fl (81.0-99.0); MEAN CORPUSCULAR HEMOGLOBIN 22.3 pg (27.0-31.0); MEAN CORPUSCULAR HGB CONC 31.9 g/dL (33.0-37.0); MEAN PLATELET VOLUME 6.8 fl (7.2-11.7); MONO # 0.5 K/uL (0.0-0.8); MONO % 8.3 % (0.0-10.0); NEUT # 4.1 K/uL (1.8-7.0); NEUT % 66.5 % (50.0-75.0); RBC 4.31 Mil/uL (3.80-5.20); RED CELL DISTRIBUTION WIDTH 23.9 % (11.5-14.5); WHITE BLOOD COUNT 6.2 K/uL (4.8-10.8)
[2018-04-09] MEDS: Levothyroxine 75 MCG TAB PO SCH (06:46)
[2018-04-09 08:12] VITALS: BP 151/79; PULSE 79; RESP 20; TEMP 97.9; O2SAT 97
--- NOTE | 2018-04-09 09:54 | CP.PCM.DIS ---
Addendum entered and electronically signed by Diana Cerna MD 04/09/18 13:25: Patient seen and examined bedside. All chart and clinical data reviewed.Case discussed with resident.Agree with assessment and discharge planning. 67 y/o female admitted with symptomatic anemia. Transfused 2 unit PRBC and Hgb stable 9.6 . Anemia work up showed severe iron deficiency anemia Given Venofer IV and started in ferrous sulfate PO Hematology consulted Dr. Hernandez Patient has had EGD and colonoscopy as outpatient CT abdomen showed diverticulosis , no other acute pathology Patient is hemodynamically stable. Will discharge home with follow up with [facility] and hematology Dx; Symptomatic anemia Severe iron deficiency anemia FOBT positive most likely sec to diverticulosis Hypertension hypothyroidism Diverticulosis Addendum entered and electronically signed by Anitha Daniel MD 04/09/18 10:56: [id number] Original Note: Provider - Provider Date of Admission: 04/07/18 15:04 Attending physician: Choco Hollis Time Spent in preparation of Discharge (in minutes): 35 Diagnosis - Discharge Diagnosis (1) Symptomatic anemia Status: Acute (2) HTN (hypertension) Status: Chronic (3) Hypothyroidism Status: Chronic Hospital Course - Lab Results Lab Results: Most Recent Lab Values WBC 6.2 K/uL (4.8-10.8) 04/09/18 05:45 RBC 4.31 Mil/uL (3.80-5.20) 04/09/18 05:45 Hgb 9.6 g/dL (12.0-16.0) L 04/09/18 05:45 Hct 30.2 % (34.0-47.0) L 04/09/18 05:45 MCV 70.1 fl (81.0-99.0) L 04/09/18 05:45 MCH 22.3 pg (27.0-31.0) L 04/09/18 05:45 MCHC 31.9 g/dL (33.0-37.0) L 04/09/18 05:45 RDW 23.9 % (11.5-14.5) H 04/09/18 05:45 Plt Count 411 K/uL (130-400) H 04/09/18 05:45 MPV 6.8 fl (7.2-11.7) L 04/09/18 05:45 Neut % (Auto) 66.5 % (50.0-75.0) 04/09/18 05:45 Lymph % (Auto) 20.0 % (20.0-40.0) 04/09/18 05:45 [place] % (Auto) 8.3 % (0.0-10.0) 04/09/18 05:45 Eos % (Auto) 3.9 % (0.0-4.0) 04/09/18 05:45 Baso % (Auto) 1.3 % (0.0-2.0) 04/09/18 05:45 Neut # (Auto) 4.1 K/uL (1.8-7.0) 04/09/18 05:45 Lymph # (Auto) 1.2 K/uL (1.0-4.3) 04/09/18 05:45 [place] # (Auto) 0.5 K/uL (0.0-0.8) 04/09/18 05:45 Eos # (Auto) 0.2 K/uL (0.0-0.7) 04/09/18 05:45 Baso # (Auto) 0.1 K/uL (0.0-0.2) 04/09/18 05:45 Neutrophils % (Manual) 83 % (42-75) H 04/08/18 08:17 Band Neutrophils % 1 % (0-2) 04/08/18 08:17 Lymphocytes % (Manual) 10 % (20-50) L 04/08/18 08:17 Monocytes % (Manual) 5 % (0-10) 04/08/18 08:17 Basophils % (Manual) 1 % (0-2) 04/08/18 08:17 Toxic Granulation Present 04/08/18 08:17 Platelet Estimate Normal (NORMAL) 04/08/18 08:17 Spherocytes Slight 04/08/18 08:17 Retic Count 3.1 % (0.5-1.5) H 04/08/18 10:39 Sodium 140 mmol/l (132-148) 04/08/18 05:45 Potassium 4.0 MMOL/L (3.6-5.0) 04/08/18 05:45 Chloride 107 mmol/L (98-107) 04/08/18 05:45 Carbon Dioxide 28 mmol/L (22-30) 04/08/18 05:45 Anion Gap 9 (10-20) L 04/08/18 05:45 BUN 18 mg/dl (7-17) H 04/08/18 05:45 Creatinine 0.8 mg/dl (0.7-1.2) 04/08/18 05:45 Est GFR ( Amer) > 60 04/08/18 05:45 Est GFR (Non-Af Amer) > 60 04/08/18 05:45 Random Glucose 104 mg/dL (65-105) 04/08/18 05:45 Hemoglobin A1c 6.2 % (4.2-6.5) 04/08/18 05:45 Calcium 9.2 mg/dL (8.4-10.2) 04/08/18 05:45 Phosphorus 4.0 mg/dl (2.5-4.5) 04/08/18 05:45 Magnesium 1.9 MG/DL (1.6-2.3) 04/08/18 05:45 Iron < 10 ug/dL (37-170) L 04/07/18 16:45 TIBC 435 ug/dL (250-450) 04/07/18 16:45 % Saturation 2.29 % (20-55) L 04/07/18 16:45 Transferrin 302.40 mg/dL (206-381) 04/08/18 10:29 Ferritin 6.8 ng/Ml (11.1-264.0) L 04/07/18 16:45 Total Bilirubin 0.9 mg/dl (0.2-1.3) 04/08/18 05:45 AST 26 U/L (14-36) 04/08/18 05:45 ALT 18 U/L (9-52) 04/08/18 05:45 Alkaline Phosphatase 109 U/L (38-126) 04/08/18 05:45 Total Protein 7.5 G/DL (6.3-8.2) 04/08/18 05:45 Total Protein (PEP) TNP 04/08/18 12:15 Albumin 3.7 g/dL (3.5-5.0) 04/08/18 05:45 Globulin 3.9 gm/dL (2.2-3.9) 04/08/18 05:45 Albumin/Globulin Ratio 1.0 (1.0-2.1) 04/08/18 05:45 Triglycerides 111 mg/DL (0-149) 04/08/18 05:45 Cholesterol 171 mg/dL (0-199) 04/08/18 05:45 LDL Cholesterol Direct 96 mg/dL (0-129) 04/08/18 05:45 HDL Cholesterol 51 MG/DL (30-70) 04/08/18 05:45 Vitamin B12 583 pg/mL (239-931) 04/07/18 16:45 Urine Color Yellow (YELLOW) 04/08/18 13:45 Urine Clarity Clear (Clear) 04/08/18 13:45 Urine pH 7.0 (5.0-8.0) 04/08/18 13:45 Ur Specific [place] 1.005 (1.003-1.030) 04/08/18 13:45 Urine Protein Negative mg/dL (NEGATIVE) 04/08/18 13:45 Urine Glucose (UA) Neg mg/dL (Normal) 04/08/18 13:45 Urine Ketones Negative mg/dL (NEGATIVE) 04/08/18 13:45 Urine Blood Negative (NEGATIVE) 04/08/18 13:45 Urine Nitrate Negative (NEGATIVE) 04/08/18 13:45 Urine Bilirubin Negative (NEGATIVE) 04/08/18 13:45 Urine Urobilinogen 0.2-1.0 mg/dL (0.2-1.0) 04/08/18 13:45 Ur Leukocyte Esterase Neg [place]essa/uL (Negative) 04/08/18 13:45 Urine RBC (Auto) < 1 /hpf (0-3) 04/08/18 13:45 Urine Microscopic WBC < 1 /hpf (0-5) 04/08/18 13:45 Ur Squamous Epith Cells < 1 /hpf (0-5) 04/08/18 13:45 Stool Occult Blood Positive (NEGATIVE) H 04/08/18 15:08 IgG 1222 mg/dL (694-1618) 04/08/18 12:12 IgA 460 mg/dL (81-463) 04/08/18 12:12 IgM 79 mg/dL (48-271) 04/08/18 12:12 Blood Type O NEGATIVE 04/07/18 13:20 Antibody Screen Negative 04/07/18 13:20 Crossmatch See Detail 04/07/18 13:20 BBK History Checked Patient has bt 04/07/18 13:20 - Hospital Course Hospital Course: 67 YO female with PMHx of HTN, HLD and microcytic anemia is admitted for sympt omatic anemia. Pt was transfused 2 units of PRBC after which hb has remain stable and symptoms of fatigue, dizziness has resolved. Blood work significant for iron deficiency anemia, pt was tranfused with 2 units of IV venofer. Hem/onc was consulted and pt was seen by Dr. Hernandez, work up thus far has been negative. Pt is feeling well today, symptoms have resolved and cleared by hem/onc to be discharged home with out patient follow up. Will d.c patient home with follow up with Dr. Polk on 04/17/18 @ 11:00 and follow up with GI outpatient (FOBT pos). New Meds: Ferrous sulfate 325mg PO Colace 100mg PO Discharge Exam - Head Exam Head Exam: ATRAUMATIC, NORMOCEPHALIC - Eye Exam Eye Exam: EOMI, Normal appearance - ENT Exam ENT Exam: Mucous Membranes Moist - Respiratory Exam Respiratory Exam: Clear to PA & Lateral, NORMAL BREATHING PATTERN. absent: Wheezes - Cardiovascular Exam Cardiovascular Exam: REGULAR RHYTHM, +S1, +S2 - GI/Abdominal Exam GI & Abdominal Exam: Normal Bowel Sounds, Soft. absent: Tenderness - Extremities Exam Extremities exam: normal inspection - Neurological Exam Neurological exam: Alert, Oriented x3 - Psychiatric Exam Psychiatric exam: Normal Mood Discharge Plan - Discharge Medications Prescriptions: Docusate [Colace] 100 mg PO DAILY #30 cap Ferrous Sulfate 325 mg PO DAILY #30 tablet - Follow Up Plan Condition: STABLE Disposition: HOME/ ROUTINE Patient education suggested?: Yes Instructions: High Blood Pressure (DC), Normocytic Normochromic Anemia (DC) Additional Instructions: Please take medications as prescribed Follow up with Dr. Polk on 04/17/18 @ 11AM ER precautions reviewed with patient
[2018-04-09] MEDS: Pantoprazole 40 mg EC Tab PO SCH (09:58)
--- NOTE | 2018-04-09 10:30 | CP.PCM.PN ---
Subjective - Date & Time of Evaluation Date of Evaluation: 04/09/18 Time of Evaluation: 10:27 - Subjective Subjective: The patient does not a history of bleeding but the stools were occult blood positive. She received 2 doses of 200mg of venofer followinf the blood transfusion, She will be seen in the clinic and followed up there Objective - Vital Signs/Intake and Output Vital Signs (last 24 hours): Temp Pulse Resp BP Pulse Ox 97.9 F 79 20 151/79 H 97 04/09/18 08:11 04/09/18 09:57 04/09/18 08:11 04/09/18 09:57 04/09/18 08:11 - Medications Medications: Current Medications Atorvastatin Calcium (Lipitor) 10 mg PO HS [facility] Last Admin: 04/08/18 21:34 Dose: 10 mg Docusate Sodium (Colace) 100 mg PO DAILY [facility] Last Admin: 04/09/18 09:57 Dose: 100 mg Ferrous Sulfate (Feosol) 325 mg PO DAILY [facility] Last Admin: 04/09/18 09:58 Dose: 325 mg Hydrochlorothiazide (Hydrodiuril) 25 mg PO DAILY [facility] Last Admin: 04/09/18 10:03 Dose: 25 mg Iron Sucrose 200 mg/ Sodium (Chloride) 110 mls @ 110 mls/hr IVPB ONCE ONE Stop: 04/09/18 10:50 Levothyroxine Sodium (Synthroid) 75 mcg PO DAILY@0630 [facility] Last Admin: 04/09/18 06:46 Dose: 75 mcg Losartan Potassium (Cozaar) 100 mg PO DAILY [facility] Last Admin: 04/09/18 09:57 Dose: 100 mg Pantoprazole Sodium (Protonix Ec Tab) 40 mg PO DAILY [facility] Last Admin: 04/09/18 09:58 Dose: 40 mg - Labs Labs: 04/09/18 05:45 04/08/18 05:45
== END 2018-04-09 15:30 | disposition home or self-care (01) ==
LOC: H.ER 11:37 → H.ERHOLD 15:04 → H.MEDSURG1 18:15
PROVIDERS: ADMIT Hospitalist; ATTEND Hospitalist
DX: D50.8 Other iron deficiency anemias (principal); E11.9 Type 2 diabetes mellitus without complications; E03.9 Hypothyroidism, unspecified; E78.5 Hyperlipidemia, unspecified; E78.00 Pure hypercholesterolemia, unspecified; I10 Essential (primary) hypertension; G47.30 Sleep apnea, unspecified; Z23 Encounter for immunization; Z91.14 Patient's other noncompliance with medication regimen; Z79.84 Long term (current) use of oral hypoglycemic drugs; Z87.891 Personal history of nicotine dependence
CPT/HCPCS: 36415; 36430; 74177; 80053; 80061; 81003; 82607; 82728; 83036; 83540; 83550; 83735; 84100; 84155; 84165; 84466; 85025; 85044; 86850; 86900; 86920; 99284; G0008; G0328; G0378; J1756; P9051; Q2035; Q9966; Q9967